=== PATIENT | female | born 1955 | race Caucasian/White ===

== ENCOUNTER 2017-11-17 20:34 | Emergency (ER) | payer MEDICAID ==
[~2017-11-17] VITALS: Ht 152.4 cm; Wt 112.5 kg
[2017-11-17 20:49] VITALS: Ht 152.4 cm; Wt 112.5 kg
[2017-11-17 21:32] VITALS: BP 149/73
== END 2017-11-17 21:32 | disposition home or self-care (01) ==
LOC: ED 20:34
DX: R60.9 Edema, unspecified (principal); I11.0 Hypertensive heart disease with heart failure; I50.9 Heart failure, unspecified; E11.9 Type 2 diabetes mellitus without complications

== ENCOUNTER 2018-01-04 18:40 | Emergency (ER) | payer MEDICAID ==
[~2018-01-04] VITALS: Ht 160 cm; Wt 112.5 kg
[2018-01-04 18:44] VITALS: Ht 160 cm; Wt 112.5 kg
[2018-01-04 20:39] VITALS: BP 156/77
== END 2018-01-04 20:39 | disposition home or self-care (01) ==
LOC: ED 18:40
DX: S80.02XA Contusion of left knee, initial encounter (principal); S80.01XA Contusion of right knee, initial encounter; S50.02XA Contusion of left elbow, initial encounter; M17.0 Bilateral primary osteoarthritis of knee; I10 Essential (primary) hypertension; E11.9 Type 2 diabetes mellitus without complications; E78.00 Pure hypercholesterolemia, unspecified; W01.0XXA Fall on same level from slipping, tripping and stumbling without subsequent striking against object, initial encounter; Y93.89 Activity, other specified; Y92.89 Other specified places as the place of occurrence of the external cause; Y99.8 Other external cause status